=== PATIENT | female | born 1970 | race Caucasian/White ===

== ENCOUNTER 2017-08-25 08:01 | Inpatient (IN) | payer SELFPAY ==
[2017-08-25] MEDS ORDERED: ONDANSETRON 4 MG/2 ML VIAL IVPUSH ONE (08:58)
[2017-08-25] MEDS ORDERED: PANTOPRAZOLE SODIUM 40 MG in SODIUM CHLORIDE 100 ML IVPB ONE (09:09)
--- NOTE | 2017-08-25 09:09 | PDOC ---
History of Present Illness <Edna Whittaker - Last Filed: 08/25/17 14:11> - General History Source: Patient Exam Limitations: Language Barrier - History of Present Illness Initial Comments: 08/25/17 09:06 The patient is a 46F with a PMH of anemia who presents to the ER with complaints of bloody diarrhea. The patient states that she's had 20 bouts of bloody diarrhea since 1400 yesterday. She states there is BRB on the toilet paper as well as in the toilet bowl. She also admits to dysuria but denies hematuria or discharge. She admits to SOB and nausea when she feels crampy abdominal pain located on her L side. This pain is intermittent and occurs only when she feels like she needs to have a BM. She states that this happens when she feels like she has to have a bowel movement. She admits to chills but denies fever, vomiting, CP. She denies any abnormal food intake and recent use of abx. <Tay Coronel - Last Filed: 08/25/17 14:36> - General Chief Complaint: Pain Stated Complaint: ABDOMINAL PAIN Time Seen by Provider: 08/25/17 08:39 Past History <Edna Whittaker - Last Filed: 08/25/17 14:11> - Past Medical History COPD: No - Suicide/Smoking/Psychosocial Hx Smoking History: Never smoked <Tay Coronel - Last Filed: 08/25/17 14:36> - Past Medical History Allergies/Adverse Reactions: Allergies Allergy/AdvReac Type Severity Reaction Status Date / Time No Known Allergies Allergy Verified 08/25/17 08:05 Home Medications: Ambulatory Orders NK [No Known Home Medication] 08/25/17 Review of Systems - Review of Systems Able to Perform ROS?: Yes Comments:: 08/25/17 09:20 GENERAL/CONSTITUTIONAL: No fever or chills. No weakness. HEAD, EYES, EARS, NOSE AND THROAT: No change in vision. No ear pain or discharge. No sore throat. CARDIOVASCULAR: No chest pain, palpitations, or lightheadedness. RESPIRATORY: Positive for shortness of breath. No cough, wheezing, or hemoptysis. GASTROINTESTINAL: Positive for nausea and abdominal pain with bloody diarrhea. No vomiting. GENITOURINARY: Positive for dysuria and urgency. No frequency, hematuria, or change in urination. MUSCULOSKELETAL: No joint or muscle swelling or pain. No neck or back pain. SKIN: No rash or lesions. NEUROLOGIC: No headache, numbness, tingling, weakness, loss of consciousness, or change in strength/sensation. ENDOCRINE: No increased thirst. No abnormal weight change. HEMATOLOGIC/LYMPHATIC: No anemia, easy bleeding, or history of blood clots. ALLERGIC/IMMUNOLOGIC: No hives or skin allergy. Is the patient limited Turkmen proficient: No <Tay Coronel - Last Filed: 08/25/17 14:36> *Physical Exam - Vital Signs Last Vital Signs Temp Pulse Resp BP Pulse Ox 98.4 F 76 18 135/78 99 08/25/17 08:02 08/25/17 08:02 08/25/17 08:02 08/25/17 08:02 08/25/17 08:02 <Edna Whittaker - Last Filed: 08/25/17 14:11> - Vital Signs Last Vital Signs Temp Pulse Resp BP Pulse Ox 98.4 F 76 18 135/78 99 08/25/17 08:02 08/25/17 08:02 08/25/17 08:02 08/25/17 08:02 08/25/17 08:02 - Physical Exam Comments: 08/25/17 09:22 GENERAL: Well developed, well nourished. Awake and alert. No acute distress. HEENT: Normocephalic, atraumatic. Hearing grossly normal. Moist mucous membranes. PERRLA, EOMI. No conjunctival pallor. Sclera are non-icteric. NECK: Supple. Full ROM. CARDIOVASCULAR: Regular rate and rhythm. No murmurs, rubs, or gallops. PULMONARY: No evidence of respiratory distress. Lungs clear to auscultation bilaterally. No wheezing, rales or rhonchi. ABDOMINAL: Soft. Tender to deep palpation over LLQ. Non-distended. No rebound or guarding. RECTAL: No gross blood noted, normal rectal tone, no hemorrhoids noted. PELVIC: Deferred by patient. GENITOURINARY: No CVA tenderness bilaterally. MUSCULOSKELETAL: Normal range of motion at all joints. No bony deformities or tenderness. EXTREMITIES: No cyanosis. No clubbing. No edema. No calf tenderness or swelling. SKIN: Warm and dry. Normal capillary refill. No rashes. No jaundice. NEUROLOGICAL: Alert, awake, appropriate. Cranial nerves 2-12 intact. Gait is normal without ataxia. PSYCHIATRIC: Cooperative. Good eye contact. Appropriate mood and affect. <BernaTay - Last Filed: 08/25/17 14:36> Heart Score/ECG Review #1 General ECG Interpretation: Sinus Rhythm, Normal Rate, Normal Intervals, No acute ischemic changes Compared to previous ECG there are: Previous ECG unavail 08/25/17 10:08 NSR @ 70 LA 134 QRS 78 QTc 429 No FABRIZIO or STD noted. Diffuse flattening of T-waves appreciated Slight T wave inversion in III which is likely normal <MoejackAlejandro baileyTay - Last Filed: 08/25/17 14:36> ED Treatment Course - LABORATORY CBC & Chemistry Diagram: 08/25/17 12:10 08/25/17 09:20 - ADDITIONAL ORDERS Additional order review: Laboratory Results 08/25/17 08/25/17 08/25/17 09:48 09:26 09:20 PT with INR 12.20 INR 1.08 Sodium Potassium Chloride Carbon Dioxide Anion Gap BUN Creatinine Creat Clearance w eGFR Random Glucose Calcium Total Bilirubin AST ALT Alkaline Phosphatase Total Protein Albumin Serum , Qual Negative Urine Color Urine Appearance Urine pH Ur Specific [place] Urine Protein Urine Glucose (UA) Urine Ketones Urine Blood Urine Nitrite Urine Bilirubin Urine Urobilinogen Ur Leukocyte Esterase Urine WBC (Auto) Urine RBC (Auto) Ur Epithelial Cells Urine Mucus Stool Occult Blood Negative Blood Type Antibody Screen 08/25/17 08/25/17 08/25/17 09:20 09:20 09:00 PT with INR INR Sodium 139 Potassium 4.1 Chloride 104 Carbon Dioxide 28 Anion Gap 7 L BUN 11 Creatinine 0.7 Creat Clearance w eGFR > 60 Random Glucose 103 Calcium 8.9 Total Bilirubin 0.7 AST 15 ALT 23 Alkaline Phosphatase 65 Total Protein 8.1 Albumin 4.1 Serum , Qual Urine Color Ltyellow Urine Appearance Slcloudy Urine pH 6.0 Ur Specific [place] 1.018 Urine Protein 1+ H Urine Glucose (UA) Negative Urine Ketones Negative Urine Blood 2+ H Urine Nitrite Negative Urine Bilirubin Negative Urine Urobilinogen Negative Ur Leukocyte Esterase Negative Urine WBC (Auto) 4 Urine RBC (Auto) 10 Ur Epithelial Cells Moderate Urine Mucus Rare Stool Occult Blood Blood Type B POSITIVE Antibody Screen Negative 08/25/17 08/25/17 12:10 09:20 RBC 3.72 4.08 MCV 82.3 82.8 MCHC 32.3 32.7 RDW 15.6 15.9 H MPV 7.1 L 7.3 L Neutrophils % 67.5 70.8 Lymphocytes % 24.3 23.0 Monocytes % 7.5 5.4 Eosinophils % 0.2 D 0.1 Basophils % 0.5 0.7 - Medications Given in the ED: ED Medications Discontinued Medications Generic Name Dose Route Start Last Admin Trade Name Shyam PRN Reason Stop Dose Admin Ciprofloxacin 500 mg 08/25/17 11:54 08/25/17 12:17 Cipro (Restricted To Id) PO 08/25/17 11:55 500 mg ONCE ONE Administration Pantoprazole Sodium 40 mg/ 100 mls @ 200 mls/hr 08/25/17 09:09 08/25/17 09:54 Sodium Chloride IVPB 08/25/17 09:38 200 mls/hr ONCE ONE Administration Metronidazole 500 mg 08/25/17 11:54 08/25/17 12:17 Flagyl - PO 08/25/17 11:55 500 mg ONCE ONE Administration Ondansetron HCl 4 mg 08/25/17 08:58 08/25/17 09:54 Zofran Injection IVPUSH 08/25/17 08:59 4 mg ONCE ONE Administration Sodium Chloride 1,000 ml 08/25/17 11:17 08/25/17 11:32 Normal Saline - IV 08/25/17 11:18 1,000 ml ONCE ONE Administration <Edna Whittaker - Last Filed: 08/25/17 14:11> - LABORATORY CBC & Chemistry Diagram: 08/25/17 14:15 08/25/17 09:20 <Tay Coronel - Last Filed: 08/25/17 14:36> Medical Decision Making - Medical Decision Making 08/25/17 09:22 The patient is a 46F with a PMH of anemia who presents with complaints of BRBPR with diarrhea. She also complaints of dysuria. I am concerned for diverticular bleed, UTI, colon CA, and thrombosed hemorrhoids. Rectal exam did not demonstrate gross blood and indicated an empty vault. Pending labs/imaging. EKG ordered to r/o mesenteric ischemia. 08/25/17 10:09 EKG not indicative of a-fib so mesenteric ischemia is r/o. Hgb stable. Pending stool occult. 08/25/17 10:46 Stool occult negative. Pending CT. 08/25/17 11:[address] read. Will give 1 L fluid bolus. 08/25/17 11:47 CT indicating L sided colitis. CT read: Findings suspicious for left-sided colitis. Clinical correlation and follow-up recommended. Please see above discussion. Will give abx. 08/25/17 12:27 Dr. Lopez Parekh paged for consultation. 08/25/17 14:[address] Kemp for admission under Dr. Sigala. Pending call back from Dr. Parekh. <Tay Coronel - Last Filed: 08/25/17 14:36> *DC/Admit/Observation/Transfer - Discharge Dispostion Decision to Admit order: Yes <Edna Whittaker - Last Filed: 08/25/17 14:11> <Tay Coronel - Last Filed: 08/25/17 14:36> Diagnosis at time of Disposition: Colitis, GI bleed
--- NOTE | 2017-08-25 09:29 | PDOC ---
Attending Attestation - HPI HPI: 08/25/17 09:49 Pt is a 46 yo F with a PMHx of Anemia (on iron supplements) who presents to the ED with abdominal pain and bloody diarrhea for the past day. Patient reports crampy, LLQ abdominal pain, radiating to L flank associated with bloody diarrhea. Patient reports 10 episodes of loose stool with bright red blood in the toilet. Patient endorses associated dizziness and reports to the ED for further evaluation. Patient denies hx of GI bleed, recent NSAID use or recent travel. Patient denies chest pain, palpitations, diaphoresis, headache or dizziness. Patient denies fever, chills, nausea, vomit, constipation. PCP: Dr. Deepika Andrade - Medical Decision Making 08/25/17 09:42 Documentation prepared by Gabriela Llanos, acting as medical record administrator for Edna Whittaker MD <Gabriela Llanos - Last Filed: 08/25/17 09:58> - Resident Resident Name: Tay Coronel - ED Attending Attestation I have performed the following: I have examined & evaluated the patient, The case was reviewed & discussed with the resident, I agree w/resident's findings & plan, Exceptions are as noted - Physicial Exam PE: 08/25/17 12:27 awake alert lungs clear bilaterally heart rrr no mrg. abd soft mild llq ttp, left mid quad ttp. rectal no gross blood, no stool in the vault. ext wwp. no edema no calf tenderness. - Medical Decision Making 08/25/17 12:29 46 yo F with one day of loose stool mixed with blood. llq abd pain. differential colitis, diverticulitis, viral ge. plan ct a/p labs . on rectal no grooss blood cbc stabel, ct noted for colitis, will start cipro and flagyl. no bloody bm while in ed for 4 hrs. will rpt cbc, if stable, will dc home with outpt gi followup. <Edna Whittaker - Last Filed: 08/25/17 12:32> Heart Score/ECG Review #1 General ECG Interpretation: Sinus Rhythm, Normal Rate (70), Normal Intervals, No acute ischemic changes - ECG Intrepretation Rhythm: Regular Rhythm - Villalba Villalba: Normal - ECG Impressions Normal ECG: Yes <Edna Whittaker - Last Filed: 08/25/17 12:32>
[2017-08-25 09:32] LABS: BASO % 0.7 % (0-2.0); EOS % 0.1 % (0-4.5); HEMATOCRIT 33.8 % (32.4-45.2); MCHC 32.7 g/dl (32.0-36.0); MEAN CELL VOLUME 82.8 fl (80-96); MEAN PLT VOLUME 7.3 fl (7.5-11.1); MONO % 5.4 % (3.8-10.2); NEUT % 70.8 % (42.8-82.8); PLATELET COUNT 386 K/MM3 (134-434); RBC 4.08 M/mm3 (3.60-5.2); RDW 15.9 % (11.6-15.6); URINE APPEARANCE SLCLOUDY; URINE BILIRUBIN NEGATIVE (<2.0 mg/dL); URINE BLOOD 2+ (NEGATIVE); URINE COLOR LTYELLOW; URINE GLUCOSE (UA) NEGATIVE (NEGATIVE); URINE KETONE NEGATIVE (NEGATIVE); URINE LEUK ESTERASE NEGATIVE (NEGATIVE); URINE NITRITE NEGATIVE (NEGATIVE); URINE UROBILINOGEN NEGATIVE mg/dL (0.2-1.0); WHITE BLOOD COUNT 7.8 K/mm3 (4.0-10.0)
[2017-08-25 09:44] LABS: INR 1.08 (0.82-1.09); PROTHROMBIN TIME (PATIENT) 12.2 SEC (9.7-13.0)
[2017-08-25] MEDS ORDERED: ONDANSETRON 4 MG/2 ML VIAL ONE (09:47)
[2017-08-25] MEDS ORDERED: PANTOPRAZOLE SODIUM 40 MG/100 ML BAG IVPB ONE (09:47)
[2017-08-25 09:54] LABS: ALBUMIN 4.1 g/dl (3.4-5.0); ALK PHOS 65 U/L (45-117); ANION GAP 7 (8-16); BILIRUBIN,TOTAL 0.7 mg/dL (0.2-1.0); BLOOD UREA NITROGEN 11 mg/dL (7-18); CALCIUM 8.9 mg/dL (8.5-10.1); CHLORIDE 104 mmol/L (98-107); CO2 28 mmol/L (21-32); CREATININE 0.7 mg/dL (0.55-1.02); GLUCOSE,RANDOM 103 mg/dL (74-106); POTASSIUM 4.1 mmol/L (3.5-5.1); SGOT/AST 15 U/L (15-37); SGPT/ALT 23 U/L (12-78); SODIUM 139 mmol/L (136-145); TOT PROT 8.1 g/dl (6.4-8.2); URINE PROTEIN 1+ (NEGATIVE)
[2017-08-25 10:51] LABS: EPI CELLS MODERATE /HPF (FEW); URINE MUCUS RARE
[2017-08-25] MEDS ORDERED: SODIUM CHLORIDE 0.9% 1000 ML INFUS.BAG IV ONE (11:17)
[2017-08-25] MEDS ORDERED: metroNIDAZOLE 250 MG TABLET PO ONE (11:54)
[2017-08-25] MEDS ORDERED: CIPROFLOXACIN 500 MG TABLET (RESTRICTED TO ID) PO ONE (11:54)
[2017-08-25] MEDS ORDERED: metroNIDAZOLE 250 MG TABLET ONE (11:59)
[2017-08-25 12:31] LABS: BASO % 0.5 % (0-2.0); EOS % 0.2 % (0-4.5); HEMATOCRIT 30.6 % (32.4-45.2); HEMOGLOBIN 9.9 GM/dL (10.7-15.3); LYMPH % 24.3 % (8-40); MCH 26.6 pg (25.7-33.7); MCHC 32.3 g/dl (32.0-36.0); MEAN CELL VOLUME 82.3 fl (80-96); MEAN PLT VOLUME 7.1 fl (7.5-11.1); MONO % 7.5 % (3.8-10.2); NEUT % 67.5 % (42.8-82.8); PLATELET COUNT 334 K/MM3 (134-434); RBC 3.72 M/mm3 (3.60-5.2); RDW 15.6 % (11.6-15.6); WHITE BLOOD COUNT 7.1 K/mm3 (4.0-10.0)
[2017-08-25 14:31] LABS: HEMATOCRIT 31.1 % (32.4-45.2); MCH 26.6 pg (25.7-33.7); MEAN CELL VOLUME 82.9 fl (80-96); MEAN PLT VOLUME 7.1 fl (7.5-11.1); PLATELET COUNT 329 K/MM3 (134-434); RBC 3.75 M/mm3 (3.60-5.2); RDW 16.1 % (11.6-15.6); WHITE BLOOD COUNT 6.4 K/mm3 (4.0-10.0)
[2017-08-25 14:53] LABS: ALBUMIN 3.6 g/dl (3.4-5.0); ANION GAP 7 (8-16); BILIRUBIN,TOTAL 0.5 mg/dL (0.2-1.0); BLOOD UREA NITROGEN 9 mg/dL (7-18); CALCIUM 8.6 mg/dL (8.5-10.1); CHLORIDE 104 mmol/L (98-107); CO2 29 mmol/L (21-32); CREATININE 0.7 mg/dL (0.55-1.02); GLUCOSE,RANDOM 90 mg/dL (74-106); POTASSIUM 3.8 mmol/L (3.5-5.1); SGOT/AST 12 U/L (15-37); SGPT/ALT 21 U/L (12-78); SODIUM 140 mmol/L (136-145); TOT PROT 7.3 g/dl (6.4-8.2)
[2017-08-25 14:54] LABS: ALK PHOS 58 U/L (45-117)
--- NOTE | 2017-08-25 14:58 | PN ---
Teaching Attending Note Name of Resident: Tiff Kemp ATTENDING PHYSICIAN STATEMENT I saw and evaluated the patient. I reviewed the resident's note and discussed the case with the resident. I agree with the resident's findings and plan as documented. SUBJECTIVE: CC: rectal bleed and abd pain . HPI : 46 y/o lady with h/o iron def anemia who presented with abd pain / diarrhea /BRBPR. she has been doing well until a week ago when she started having diarrhea . then yesterday diarrhea got worses, then she started having abd pain , and BRBPR with some of her BM she had. pain is constant , located in LLQ, LUQ, with no alleviating factors or agravating factors. she denies recent Abx use. she denies any fever or chills. No N/V. reports using NSAIDs, twice a day three times a week for general ains and aches lately. she denies colonoscopy or EGD in past. OBJECTIVE: NAD, Awake and cooperative HEENT: MMM, no facial droop. EOMI. round equal pupils . CV: RRR, no MRG Lungs: CTAB Abd: soft, ND, obese, TTP in LLQ and suprapubic area. No rebound tenderness or guarding. Ext: no edema or erythema. L anterior leg tattoo Neuro: EOMI, no facial droop. ongue and uvula at mid line. strength 5/5 in upper and lwoer ext. Knee jerk 1+ b/l . Rectal exam : by resident EKG: sinus rhythm,. QTC 434 CTscan : L colitis , and enlarged uterus ASSESSMENT AND PLAN: 46 y/o lady with h/o anemia , who presented with rectal bleed and abd pain and was found to have colitis on CT scan . 1- Abd pain, diarrhea and rectal bleed: the diarrhea x 1 week then abd pain and BRBPR raise suspicion for ischemic colitis due to volume depletion . infectious colitis is also in differential diagnosis . NSAIDs use also partcipating. IBD is unlikely. - start levaquin and flagyl. Qtc 434. - IVF @ 125 cc/hr to keep adequate volume - echo - clear liquid diet - bowel prep tomorrow for colonoscopy on Sunday - send stool cx and c diff - follow Hb closely as there is initial drop of 1 g - Gi consult 2- H/O iron def anemia: likely due to heavy menstrual bleeding. Ct scan showed enlarged uterus with fibroids. - f/u with [employer] as out pt - check iron studies - she stopped her iron supp 2 weeks ago. 3- DVT px : SCds
--- NOTE | 2017-08-25 15:38 | HP ---
CHIEF COMPLAINT: Bloody Diarrhea PCP: Dr. Raymond Vila HISTORY OF PRESENT ILLNESS: Patient is a 46 year old female with a PMHx of Iron def. anemia who presents today complaining of a one week history of diarrhea that started after eating gretchen pasta. Patient reports she started having at least 1-2 watery diarrhea episodes since last Sunday (08/14/17) and then yesterday afternoon she started having increasing diarrhea (reports up to 40 times yesterday) with episodes of bloody bright red diarrhea associated with abdominal pain. Patient reports sharp, constant suprabupic tenderness radiating to the LLQ with a severity of 10 /10. Patient states she did not eat since yesterday and is unsure if it exacerbates the symptoms. She denies any changes to her diet. Denies eating spicy food. Patient reports never having an EGD or colonscopy done. Patient adela, does report taking 2 pills of Advil at least four times a week for headaches and back pain for the past 2-3 months. Otherwise, patient denies fever, chills, nausea, vomiting, chest pain, palpitations, shortness of breath, dysuria, hematuria, hematochezia, melena. Patient denies any recent travel ER course was notable for: (1) CT abdo revealing colitis (2) Flagyl and Cipro given (3) Recent Travel: Denies PAST MEDICAL HISTORY: Iron Deficiency Anemia PAST SURGICAL HISTORY: Hysterectomy (21 years ago) Social History: Smoking: Denies Alcohol: Denies Drugs: Denies Family History: Denies any family history of colon cancer Mother- Pancreatic cancer Father- Liver cancer Allergies: No Known Allergies Allergy (Verified 08/25/17 08:05) HOME MEDICATIONS: Home Medications Medication Instructions Recorded NK [No Known Home Medication] 08/25/17 REVIEW OF SYSTEMS CONSTITUTIONAL: Absent: fever, chills, diaphoresis, generalized weakness, malaise, loss of appetite, weight change HEENT: Absent: rhinorrhea, nasal congestion, throat pain, throat swelling, difficulty swallowing, mouth swelling, ear pain, eye pain, visual changes CARDIOVASCULAR: Absent: chest pain, syncope, palpitations, irregular heart rate, lightheadedness , peripheral edema RESPIRATORY: Absent: cough, shortness of breath, dyspnea with exertion, orthopnea, wheezing, stridor, hemoptysis GASTROINTESTINAL: Bloody diarrhea, abdominal pain Absent: abdominal distension, nausea, vomiting, constipation, melena, hematochezia GENITOURINARY: Absent: dysuria, frequency, urgency, hesitancy, hematuria, flank pain, genital pain MUSCULOSKELETAL: Absent: myalgia, arthralgia, joint swelling, back pain, neck pain SKIN: Absent: rash, itching, pallor HEMATOLOGIC/IMMUNOLOGIC: Absent: easy bleeding, easy bruising, lymphadenopathy, frequent infections ENDOCRINE: Absent: unexplained weight gain, unexplained weight loss, heat intolerance, cold intolerance NEUROLOGIC: Absent: headache, focal weakness or paresthesias, dizziness, unsteady gait, seizure, mental status changes, bladder or bowel incontinence PSYCHIATRIC: Absent: anxiety, depression, suicidal or homicidal ideation, hallucinations. PHYSICAL EXAMINATION Vital Signs - 24 hr 08/25/17 08/25/17 08:02 15:11 Temperature 98.4 F 97.8 F Pulse Rate 76 Pulse Rate [ 75 Left Apical] Respiratory 18 16 Rate Blood Pressure 135/78 Blood Pressure 131/84 [Left Arm] O2 Sat by Pulse 99 99 Oximetry (%) GENERAL: Awake, alert, and fully oriented, in no acute distress. HEAD: Normal with no signs of trauma. EYES: Pupils equal, round and reactive to light, extraocular movements intact, sclera anicteric, conjunctiva clear. No lid lag. EARS, NOSE, THROAT: Oropharynx clear without exudates. Moist mucous membranes. NECK: Normal range of motion, supple without lymphadenopathy, JVD, or masses. LUNGS: Breath sounds equal, clear to auscultation bilaterally. No wheezes, and no crackles. No accessory muscle use. HEART: Regular rate and rhythm, normal S1 and S2 without murmur, rub or gallop. ABDOMEN: Soft, obese, tenderness upon palpation of suprapubic region and left lower quadrant, hyperactive bowel sounds, no guarding, no rebound, no masses. No hepatomegaly or splenomegaly. RECTAL: MUSCULOSKELETAL: Normal range of motion at all joints. No bony deformities or tenderness. No CVA tenderness. UPPER EXTREMITIES: No peripheral edema. LOWER EXTREMITIES: No calf tenderness. No peripheral edema. NEUROLOGICAL: Cranial nerves II-XII intact. Normal speech. Normal gait. PSYCHIATRIC: Cooperative. Good eye contact. Appropriate mood and affect. SKIN: Warm, dry, normal turgor, no rashes or lesions noted, normal capillary refill. Laboratory Results - last 24 hr CBC, BMP 08/25/17 14:15 08/25/17 14:15 08/25/17 08/25/17 08/25/17 09:20 09:20 09:48 INR 1.08 AST ALT Alkaline Phosphatase Urine Blood 2+ H Ur Leukocyte Esterase Negative Urine WBC (Auto) 4 Stool Occult Blood Negative 08/25/17 14:15 INR AST 12 L ALT 21 Alkaline Phosphatase 58 Urine Blood Ur Leukocyte Esterase Urine WBC (Auto) Stool Occult Blood IMAGES: CT Abdomen (): The lung bases are clear. The liver, spleen, pancreas, adrenal glands and kidneys demonstrate no significant abnormalities. There is no evidence of intra-abdominal or retroperitoneal lymphadenopathy or fluid collections. There is no evidence of pneumoperitoneum, bowel obstruction or intra-abdominal abscess. There is increased stool within the right colon. The left colon is somewhat collapsed and amorphous in appearance. There is a mild degree of inflammatory stranding about the left colon. This appearance is suspicious for colitis. Clinical correlation is advised. Colonoscopic follow-up may also be warranted. Examination of the pelvis demonstrates no evidence of pelvic masses, fluid collections or lymphadenopathy. The uterus is somewhat bulky in appearance and leiomyomata are suspected. There is no evidence of acute bony pathology. IMPRESSION: Findings suspicious for left-sided colitis. ASSESSMENT/PLAN: Patient is a 46 year old female who presented for bloody diarrhea and was found to have left sided colitis. Patient admitted for further monitoring and management. Abdominal Pain with Bloody Diarrhea -Possibly secondary to ischemic vs. infectious colitis. Rule out GI bleed -CT shows Left sided colitis -History of NSAID use -IV abx with Flagyl 500MG IVPB Q8H and Ceftriaxone 1gm IVPB daily -Clear liquid diet -LR @125mls/hr -Stool cultures and c.diff culture sent -ECHO to rule out any emboli -Repeat hgb this evening -Bowel prep tomorrow with a colonscopy Sunday (08/27/17) -GI consult appreciated History of Iron Deficiency Anemia -Likely secondary to enlarged uterus with possible fibroids -Will need to follow up with OBGYN as outpatient -Stopped taking ferrous sulfate due to constipation two weeks ago -Iron studies pending F/E/N -IV LR @125mls/hr -Electrolytes wnl -Clear liquids Prophylaxis -GI bleed, no AC -Protonix 40mg IVP daily for GI Disposition -Full code -Bowel prep tomorrow for colonoscopy sunday (08/27/17) Visit type - Emergency Visit Emergency Visit: Yes ED Registration Date: 08/25/17 Care time: The patient presented to the Emergency Department on the above date and was hospitalized for further evaluation of their emergent condition. - New Patient This patient is new to me today: Yes Date on this admission: 08/25/17 - Critical Care Critical Care patient: No Hospitalist Screening - Colonoscopy Questionnaire Colonoscopy Questionnaire: Colonoscopy Questionnaire - Patient: 50 - 75 years old and never had a screening colonoscopy: No History of colon or rectal polyps, or CA: No History of IBD, Crohn's disease or UC: No History of abdominal radiation therapy as a child: No - Relative: 1 with colon or rectal CA, or polyps at age 60 or younger: No Colon or rectal CA diagnosed at age 45 or younger: No Multiple relatives with colon or rectal CA: No - Outcome: Screening Result: Negative Screen
--- NOTE | 2017-08-25 16:38 | PN ---
Progress Note (short form) - Note Progress Note: GI CONSULTATION: PLEASE SEE THE COMPLETE DICTATION D/W MEDICAL TEAM ACUTE HEMATOCHEZIA/DIARRHEA HEMODYNAMICALLY INSIGNIFICANT HGB 11 TO 10 AFTER [address] C/W DISTAL COLITIS OF ? ETIOLOGY DDX DISCUSSED WITH TEAM RECC: CLEARS PO F/U h/h IN AM START GOLYTLY 1 GALLON AT 2PM ON 08/26 DULCOLAX 4 TABS PO AT 6PM ON 08/27 COLONOSOCPY ON 08/27 STOOL STUDIES UNCLEAR ROLE OF ABX OR PPI IN THIS SETTING BUT DOUBT ANY HARM THANKS, MD BALWINDER
[2017-08-25 17:03] VITALS: BMI 40.5
--- NOTE | 2017-08-25 17:06 | CONS ---
DATE OF CONSULTATION: DATE OF DICTATION: 08/25/2017 HISTORY: I was asked by Dr. Zafar to evaluate the patient for hematochezia. The patient is a 46-year-old woman from the [place] who tells me that she has no past medical history. The patient has not been on any medication. She has no history of diabetes or heart disease. Apparently, the story I got via translation from the relative at the bedside is that yesterday after lunch she had the onset of bloody diarrhea multiple episodes. She did not have any fevers, chills, or sweats. She did not have any nausea or vomiting, but she did have crampy epigastric and then left lower quadrant pain. She was not having any rectal discomfort, pus, fecal incontinence, or discharge. The patient reports that she has never had bowel problems in the past. She has no known GI history. She has never had a colonoscopy in the past. The patient has been taking for some body aches and pains and headaches. She takes a lot of Advil. Sometimes she takes between 2-4 Advil a day on a chronic basis. Otherwise, she does not take any medications. The patient does not smoke, drink, or use drugs. 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 She is . She was born in the [place]. The patient's only surgery was a bilateral tubal ligation. As noted, she has no prior medical history. Family history is notable in that her mother has pancreatic cancer. Her father had liver disease. When the patient came into the hospital it is noted that she was hemodynamically stable, and in the emergency room she was evaluated and known to have some blood on digital examination. The patient had a CAT scan raising concern of colitis, and she was admitted for treatment and diagnostic testing. Currently, the patient's last bowel movement was about an hour ago, and it was bloody. Otherwise, she is feeling okay and is not having any significant tenesmus or incomplete evacuation. MEDICATIONS: The patient's current medication in the hospital includes ceftriaxone, Flagyl, IV fluid, and Protonix. She had gotten some Zofran. PHYSICAL EXAMINATION: General: She is very well developed, well nourished in no acute distress. Vital Signs: She is afebrile. Her vital signs are stable. Her heart rate is 75, her blood pressure is 131/84. Her temperature is 97.8, and she weighs 230 pounds. Neck: Thick. Heart: Regular. Abdomen: Obese but soft. Bowel sounds are heard. There are no masses, rebound, or guarding. There is minimal tenderness to deep palpation in the left lower quadrant. Rectal: Not repeated as it was recently just done in the emergency room as noted. LABORATORY DATA: Her lab data is notable in that her hemoglobin on admission was 11 and after IV fluid for approximately 5 hours it dropped to 10. Her MCV is 83 with 229,000 platelets and a 6.4 white count. Her coagulation studies are currently normal, and her chemistries are all within normal limits as well. As noted, the only testing she did have in addition was a CAT scan that reveals evidence of a left distal colon colitis. IMPRESSION: The patient is a 46-year-old woman without medical history from [place] who comes in with diarrhea and rectal bleeding with left lower quadrant crampy pain and findings to support a distal colitis of unclear etiology. At this time, I have strongly recommended the patient be admitted, placed on a clear liquid diet, and be resuscitated and observed. Tomorrow she will begin a GoLYTELY lavage with Dulcolax tablets, and she will undergo a diagnostic colonoscopy on August 27. Based on those findings, further recommendations will follow. For now, I would recommend continuing to send off stool studies to rule out infectious culprits. In a differential diagnosis would be ischemic colitis but less likely because there is no white count and no significant pain, and it is unclear that her blood pressure has actually dropped. Possibly would be an infectious colitis, but again, she does not appear infected, normal white count. She certainly is not toxic. I do not think there is any significant harm to the antibiotics, but I doubt that it is going to play a role in her convalescence. Regardless, for now I would check stool studies, perform colonoscopy and biopsy as needed. She has not been on recent antibiotics, so I think a Clostridium difficile colitis is unknown. We will continue to be available to aid in the management of this patient. GUILLE BRITT M.D. HANANE/[id number]
[2017-08-25] MEDS: LACTATED RINGERS SOLUTION 1,000 ML IV SCH (18:13)
[2017-08-25] MEDS ORDERED: DEXTROSE 5%-WATER - 50 ML IVPB ONE (20:53)
[2017-08-25] MEDS ORDERED: cefTRIAXone SODIUM 1 GM VIAL ONE (20:53)
[2017-08-25] MEDS: CEFTRIAXONE 1 GM in DEXTROSE 5%-WATER - 50 ML IVPB SCH (21:05)
[2017-08-25] MEDS ORDERED: CEFTRIAXONE 1 GM in DEXTROSE 5%-WATER - 50 ML IVPB ONE (22:00)
[2017-08-26] MEDS: ACETAMINOPHEN 325 MG TABLET (FP) PO PRN ×2 (01:58→10:05)
[2017-08-26 08:46] LABS: HEMATOCRIT 29.6 % (32.4-45.2); HEMOGLOBIN 9.8 GM/dL (10.7-15.3); MCH 27.4 pg (25.7-33.7); MCHC 33.2 g/dl (32.0-36.0); MEAN CELL VOLUME 82.4 fl (80-96); MEAN PLT VOLUME 7.3 fl (7.5-11.1); PLATELET COUNT 315 K/MM3 (134-434); RDW 15.7 % (11.6-15.6); WHITE BLOOD COUNT 4.9 K/mm3 (4.0-10.0)
[2017-08-26 09:12] LABS: CHLORIDE 104 mmol/L (98-107); POTASSIUM 3.7 mmol/L (3.5-5.1); SODIUM 140 mmol/L (136-145)
[2017-08-26 09:17] LABS: ANION GAP 7 (8-16); BLOOD UREA NITROGEN 9 mg/dL (7-18); CALCIUM 8.3 mg/dL (8.5-10.1); CO2 29 mmol/L (21-32); CREATININE 0.7 mg/dL (0.55-1.02); GLUCOSE,RANDOM 98 mg/dL (74-106); MAGNESIUM 2.4 mg/dL (1.8-2.4); PHOSPHOROUS 3.5 mg/dL (2.5-4.9)
[2017-08-26 09:18] LABS: INR 1.13 (0.82-1.09); PROTHROMBIN TIME (PATIENT) 12.8 SEC (9.7-13.0)
[2017-08-26] MEDS ORDERED: PT OWN MED DRAWER 7, Y5N ONE (09:33)
[2017-08-26] MEDS ORDERED: CEFTRIAXONE 1 GM in DEXTROSE 5%-WATER - 50 ML IVPB SCH (10:00)
[2017-08-26] MEDS ORDERED: PANTOPRAZOLE SODIUM 40 MG VIAL IVPUSH SCH (10:00)
[2017-08-26] MEDS ORDERED: PEG3350/SOD SULF,BICARB,CL/KCL 4,000 ML SOLN.RECON PO ONE (14:00)
--- NOTE | 2017-08-26 14:26 | PN ---
GI Progress Note Subjective: GI F/U NOTE NO FURTHER HEMATOCHEZIA NO DIARRHEA NO N/V/F/C/S LESS ABD CRAMPING IN THE LLQ TAKING CLEARS PO NOW TO START BOWEL PREP - Objective Vital Signs: Vital Signs Temperature 98.6 F 08/26/17 09:00 Pulse Rate 73 08/26/17 09:00 Respiratory Rate 18 08/26/17 09:00 Blood Pressure 150/65 08/26/17 09:00 O2 Sat by Pulse Oximetry (%) 98 08/25/17 21:00 Constitutional: Well Nourished, No Distress, Calm Eyes: Yes: WNL (+BS/ SOFT/ NT/ OBESE) Labs: CBC, BMP 08/26/17 06:30 08/26/17 06:30 INR, PTT INR 1.13 (0.82-1.09) 08/26/17 06:30 Assessment/Plan 46F WITH ACUTE HEMATOCHEZIA DROP IN HGB FROM 11 TO 9.8/ REL. STABLE HEMODYNE STABLE CT C/W COLITIS: ? ISHCEMIC VS INFECTIOUS FOR DX COLONOSCOPY ON 08/27 PT CONSENT DESPITE THE RISKS FOR BOWEL PREP TODAY: GOLYLTY + DULCOLAX TABS NPO AT MN EXCEPT MEDS F/U STOOL STUDIES MD BALWINDER
[2017-08-26] MEDS: LACTATED RINGERS SOLUTION 1,000 ML IV SCH (17:39)
[2017-08-26] MEDS ORDERED: BISACODYL 5 MG TABLET.DR (FP) PO ONE (18:00)
--- NOTE | 2017-08-26 18:10 | PN ---
Progress Note (short form) - Note Progress Note: Subjective: No fever or chills . has no Abd pain. Objective: Vital Signs: Last Vital Signs Temp Pulse Resp BP Pulse Ox 98.2 F 75 18 125/65 98 08/26/17 14:33 08/26/17 14:33 08/26/17 14:33 08/26/17 14:33 08/25/17 21:00 Laboratory Results - last 24 hr 08/25/17 08/26/17 08/26/17 20:10 06:30 06:30 WBC 4.9 RBC 3.60 Hgb 9.8 L Hct 29.6 L MCV 82.4 MCH 27.4 MCHC 33.2 RDW 15.7 H Plt Count 315 MPV 7.3 L PT with INR 12.80 INR 1.13 Sodium Potassium Chloride Carbon Dioxide Anion Gap BUN Creatinine Random Glucose Calcium Phosphorus Magnesium Ferritin 4.308 L 08/26/17 06:30 WBC RBC Hgb Hct MCV MCH MCHC RDW Plt Count MPV PT with INR INR Sodium 140 Potassium 3.7 Chloride 104 Carbon Dioxide 29 Anion Gap 7 L BUN 9 Creatinine 0.7 Random Glucose 98 Calcium 8.3 L Phosphorus 3.5 Magnesium 2.4 Ferritin Physical Exam: NAD, Awake and cooperative. HEENT: MMM CV: RRR, no MRG Lungs: CTAB Abd: soft, ND, obese, NT today Ext: no edema or erythema. L anterior leg tattoo ASSESSMENT AND PLAN: 46 y/o lady with h/o anemia , who presented with rectal bleed and abd pain and was found to have colitis on CT scan . 1- L sided colitis : ischemic Vs infectious has h/o NSAIds use as well - Cont Abx - Cont IVF . avoid hypoperfusion - echo - stool cx pending - stable HB . follow - colo tomorrow. bowel prep today 2- H/O iron def anemia: likely due to heavy menstrual bleeding. Ct scan showed enlarged uterus with fibroids. - f/u with [facility] as out pt - ferritin 4 , indicating very depleted iron stores. rest pending. - give IV iron x 1 . will need to be evaluated for iron transfusion prpotocol as out pt - will dc on Po iron 3- DVT px : SCds Visit type - Emergency Visit Emergency Visit: Yes ED Registration Date: 08/25/17 Care time: The patient presented to the Emergency Department on the above date and was hospitalized for further evaluation of their emergent condition. - New Patient This patient is new to me today: No - Critical Care Critical Care patient: No
[2017-08-26] MEDS ORDERED: IRON SUCROSE INJECTION 200 MG in SODIUM CHLORIDE 90 ML IVPB ONE (18:30)
[2017-08-26] MEDS ORDERED: cefTRIAXone SODIUM 1 GM VIAL ONE (20:42)
[2017-08-26] MEDS ORDERED: DEXTROSE 5%-WATER - 50 ML IVPB ONE (20:45)
[2017-08-26] MEDS: CEFTRIAXONE 1 GM in DEXTROSE 5%-WATER - 50 ML IVPB SCH (21:34)
--- NOTE | 2017-08-26 22:17 | EKG ---
Test Reason : Blood Pressure : / mmHG Vent. Rate : 070 BPM Atrial Rate : 070 BPM P-R Int : 134 ms QRS Dur : 078 ms QT Int : 398 ms P-R-T Axes : 037 -01 001 degrees QTc Int : 429 ms NORMAL SINUS RHYTHM NONSPECIFIC T WAVE ABNORMALITY ABNORMAL ECG NO PREVIOUS ECGS AVAILABLE Confirmed by MIGUELINA PARHAM MD ([id number]) on 08/26/2017 10:16:55 PM Referred By: Confirmed By:MIGUELINA PARHAM MD
[2017-08-27] MEDS ORDERED: INSULIN (NOVOLOG) ASPART 100 UNITS/ML 10ML VIAL ONE (06:09)
[2017-08-27] MEDS ORDERED: INSULIN (LEVEMIR) 100 UNITS/ML UNITS SQ ONE (06:10)
[2017-08-27 06:12] LABS: SERUM IRON SATURATION 8 % (15-55); TOTAL IRON BINDING CAPACITY 358 ug/dL (250-450); UIBC 328 ug/dL (131-425)
[2017-08-27 08:22] LABS: HEMATOCRIT 30.8 % (32.4-45.2); HEMOGLOBIN 10.2 GM/dL (10.7-15.3); MCH 27.2 pg (25.7-33.7); MCHC 33.2 g/dl (32.0-36.0); MEAN CELL VOLUME 81.8 fl (80-96); MEAN PLT VOLUME 7.3 fl (7.5-11.1); PLATELET COUNT 338 K/MM3 (134-434); RBC 3.77 M/mm3 (3.60-5.2); RDW 15.8 % (11.6-15.6); WHITE BLOOD COUNT 6.3 K/mm3 (4.0-10.0)
[2017-08-27] MEDS: LACTATED RINGERS SOLUTION 1,000 ML IV SCH ×2 (09:21→16:50)
--- NOTE | 2017-08-27 13:03 | PROC ---
Endoscopy Procedure Endoscopy procedure completed. Please see scanned procedure report. Moderate erythema and edema in the distal descending, sigmoid colon, mild erythema in the rectum. Normal appearing TI, ascending, transverse colon. A diminutive polyp was found in the cecum and removed. Await biopsies and stool test results Low residual diet for now Avoid NSAIDS
[2017-08-27 14:13] LABS: TRANSFERRIN 279 mg/dL (200-370)
--- NOTE | 2017-08-27 19:08 | PN ---
Physical Exam: SUBJECTIVE: Patient seen and examined oob ambulating around room. Feels well, no complaints. Eating rice and applesauce. OBJECTIVE: Vital Signs Period Temp Pulse Resp BP Sys/Mahoney Pulse Ox Last 24 Hr 97.9 F-99.4 F 71-87 18-20 105-153/50-88 98-100 GENERAL: The patient is awake, alert, and fully oriented, in no acute distress. LUNGS: Breath sounds equal, clear to auscultation bilaterally, no wheezes, no crackles, no accessory muscle use. HEART: Regular rate and rhythm, S1, S2 ABDOMEN: Soft, nontender, nondistended, normoactive bowel sounds, no guarding, no rebound EXTREMITIES: 2+ pulses, warm, well-perfused, no edema. NEUROLOGICAL: Cranial nerves II through XII grossly intact. Normal speech, steady gait Laboratory Results - last 24 hr 08/25/17 08/27/17 20:10 07:42 WBC 6.3 RBC 3.77 Hgb 10.2 L Hct 30.8 L MCV 81.8 MCH 27.2 MCHC 33.2 RDW 15.8 H Plt Count 338 MPV 7.3 L Iron 30 TIBC 358 Iron Saturation 8 L Transferrin 279 Active Medications Generic Name Dose Route Start Last Admin Trade Name Freq PRN Reason Stop Dose Admin Acetaminophen 650 mg 08/25/17 22:10 08/26/17 10:05 Tylenol - PO 650 mg Q6H PRN Administration FEVER Lactated Ringer's 1,000 mls @ 125 mls/hr 08/25/17 16:15 08/27/17 16:50 Lactated Ringers Solution IV Not Given [facility] Metronidazole 500 mg in 100 mls @ 100 mls/hr 08/25/17 18:00 08/27/17 17:15 Flagyl 500mg Premixed Ivpb - IVPB 100 mls/hr Q8H-IV DINA Administration Ceftriaxone Sodium 1 gm/ 50 mls @ 100 mls/hr 08/25/17 22:00 08/26/17 21:34 Dextrose IVPB 100 mls/hr Q24H DINA Administration Protocol ASSESSMENT/PLAN 47 year-old female with a PMH significant for iron-deficiency anemia. Admitted for colitis and bloody diarrhea in the setting of significant NSAID use. Colitis --Colonoscopy today: moderate erythema and edema distal descending, sigmoid, rectum; one tiny polyp --low residual diet --avoid NSAIDS --continue ceftriaxone (day #3), metronidazole (day #3) --GI following Iron deficiency anemia --h/h stable --CT shows enlarged uterus with fibroids, will need outpatient VAMP [facility]TER followup FEN Fluids: PO intake adequate Electrolytes: replete as indicated Nutrition: low fiber diet DVT prophylaxis: SCDs, oob, ambulation; hold chemical prophylaxis due to bleeding issue Dispo: continues to require inpatient care. Full code. Visit type - Emergency Visit Emergency Visit: Yes ED Registration Date: 08/25/17 Care time: The patient presented to the Emergency Department on the above date and was hospitalized for further evaluation of their emergent condition. - New Patient This patient is new to me today: Yes Date on this admission: 08/27/17 - Critical Care Critical Care patient: No
[2017-08-27] MEDS ORDERED: cefTRIAXone SODIUM 1 GM VIAL ONE (21:33)
[2017-08-27] MEDS ORDERED: DEXTROSE 5%-WATER - 50 ML IVPB ONE (21:34)
[2017-08-27] MEDS: CEFTRIAXONE 1 GM in DEXTROSE 5%-WATER - 50 ML IVPB SCH (21:42)
--- NOTE | 2017-08-28 11:15 | DS ---
Physical Exam: SUBJECTIVE: Patient seen and examined OBJECTIVE: Vital Signs Period Temp Pulse Resp BP Sys/Mahoney Pulse Ox Last 24 Hr 97.9 F-99.4 F 68-87 18-20 105-153/50-88 98-100 PHYSICAL EXAM GENERAL: The patient is awake, alert, and fully oriented, in no acute distress. HEAD: Normal with no signs of trauma. EYES: PERRL, extraocular movements intact, sclera anicteric, conjunctiva clear. ENT: Ears normal, nares patent, oropharynx clear without exudates, moist mucous membranes. NECK: Trachea midline, full range of motion, supple. LUNGS: Breath sounds equal, clear to auscultation bilaterally, no wheezes, no crackles, no accessory muscle use. HEART: Regular rate and rhythm, S1, S2 without murmur, rub or gallop. ABDOMEN: Soft, nontender, nondistended, normoactive bowel sounds, no guarding, no rebound, no hepatosplenomegaly, no masses. EXTREMITIES: 2+ pulses, warm, well-perfused, no edema. NEUROLOGICAL: Cranial nerves II through XII grossly intact. Normal speech, gait not observed. PSYCH: Normal mood, normal affect. SKIN: Warm, dry, normal turgor, no rashes or lesions noted. LABS Laboratory Results - last 24 hr 08/25/17 20:10 Transferrin 279 HOSPITAL COURSE: Date of Admission:08/25/17 Date of Discharge: 08/28/17 Minutes to complete discharge: 35 Discharge Summary Reason For Visit: COLITIS GI HEMORRHAGE Current Active Problems Colitis (Acute) GI bleed (Acute) - Instructions Referrals: Raymond Vila [Primary Care Provider] - - Home Medications Comprehensive Discharge Medication List: Ambulatory Orders Advil - 1 tab PO Q6H PRN 08/25/17 This patient is new to me today: No Emergency Visit: Yes ED Registration Date: 08/25/17 Care time: The patient presented to the Emergency Department on the above date and was hospitalized for further evaluation of their emergent condition. Critical Care patient: No - Discharge Referral [facility]erred to [facility] Med P.C.: No
[2017-08-28 12:10] VITALS: BP 133/71; PULSE 77; TEMP 98.5
--- NOTE | 2017-08-28 17:15 | PATH ---
Surgical Pathology Report Patient Name: GERMAN TORRES [facility]. Rec. #: [id number] /Age/Gender: 1970 (Age: 47) / F Account: [id number] Location: [facility] MED/SURG Taken: 08/27/2017 Received: 08/27/2017 Reported: 08/28/2017 Physicians: Mark Stokes M.D. Specimen(s) Received A: BX TERMINAL ILEUM B: BX CECAL POLYP C: BX ASCENDING COLON D: BX TRANSVERSE COLON E: BX DESCENDING COLON F: BX SIGMOID G: BX RECTUM Clinical History Hematochezia Postoperative diagnosis: Polyp, colitis Final Diagnosis A. TERMINAL ILEUM, BIOPSY: ILEUM MUCOSA WITH NO DIAGNOSTIC ABNORMALITIES. B. CECUM POLYP, BIOPSY: TUBULAR ADENOMA. C. ASCENDING COLON, BIOPSY: COLONIC MUCOSA WITH REACTIVE LYMPHOID AGGREGATE. D. TRANSVERSE COLON, BIOPSY: COLONIC MUCOSA WITH NO DIAGNOSTIC ABNORMALITIES. E. DESCENDING COLON, BIOPSY: COLONIC MUCOSA WITH REACTIVE LYMPHOID AGGREGATE. F. SIGMOID, BIOPSY: COLONIC MUCOSA WITH REACTIVE LYMPHOID AGGREGATE. G. RECTAL, BIOPSY: COLONIC MUCOSA WITH REACTIVE LYMPHOID AGGREGATE. Electronically Signed Elsie Lambert M.D. Gross Description A. Received in formalin, labeled "biopsy terminal ileum" are 2 junior, irregular portions of soft tissue measuring 0.3 and 0.6 cm. in greatest dimension. The specimens are submitted in toto in one cassette. B. Received in formalin, labeled "biopsy cecal polyp" are 2 junior, irregular portions of soft tissue measuring 0.2 and 0.4 cm. in greatest dimension. The specimens are submitted in toto in one cassette. C. Received in formalin, labeled "biopsy ascending colon" are 2 junior, irregular portions of soft tissue measuring 0.1 and 0.4 cm. in greatest dimension. The specimens are submitted in toto in one cassette. D. Received in formalin, labeled "biopsy transverse colon" are 2 junior, irregular portions of soft tissue averaging 0.4 cm. in greatest dimension. The specimens are submitted in toto in one cassette. E. Received in formalin, labeled "biopsy descending colon" are 2 junior, irregular portions of soft tissue measuring 0.4 and 0.5 cm. in greatest dimension. The specimens are submitted in toto in one cassette. F. Received in formalin, labeled "biopsy sigmoid" are 5 junior, irregular portions of soft tissue ranging from 0.1-0.6 cm. in greatest dimension. The specimens are submitted in toto in one cassette. G. Received in formalin, labeled "biopsy rectum" are 2 junior, irregular portions of soft tissue measuring 0.4 and 0.5 cm. in greatest dimension. The specimens are submitted in toto in one cassette. 08/27/201708/27/2017
== END 2017-08-28 13:00 | disposition home or self-care (01) | DRG 253 ==
LOC: JER 08:01 → JERBED 14:12 → OBSVTOIN 14:12 → J8W 16:22
PROVIDERS: ADMIT Internal Medicine; ATTEND Nurse Practitioner Acute Care
PROC: 0DDM8ZX Extraction of Descending Colon, Via Natural or Artificial Opening Endoscopic, Diagnostic (ICD-10-PCS; 2017-08-27)
PROC: 0DDL8ZX Extraction of Transverse Colon, Via Natural or Artificial Opening Endoscopic, Diagnostic (ICD-10-PCS; 2017-08-27)
PROC: 0DDK8ZX Extraction of Ascending Colon, Via Natural or Artificial Opening Endoscopic, Diagnostic (ICD-10-PCS; 2017-08-27)
PROC: 0DDN8ZX Extraction of Sigmoid Colon, Via Natural or Artificial Opening Endoscopic, Diagnostic (ICD-10-PCS; 2017-08-27)
PROC: 0DDP8ZX Extraction of Rectum, Via Natural or Artificial Opening Endoscopic, Diagnostic (ICD-10-PCS; 2017-08-27)
PROC: 0DBH8ZX Excision of Cecum, Via Natural or Artificial Opening Endoscopic, Diagnostic (ICD-10-PCS; 2017-08-27)
PROC: 0DDB8ZX Extraction of Ileum, Via Natural or Artificial Opening Endoscopic, Diagnostic (ICD-10-PCS; principal; 2017-08-27 15:15)
DX: K92.2 Gastrointestinal hemorrhage, unspecified (principal); K52.9 Noninfective gastroenteritis and colitis, unspecified; D50.9 Iron deficiency anemia, unspecified; D25.9 Leiomyoma of uterus, unspecified; E66.9 Obesity, unspecified; Z68.41 Body mass index [BMI] 40.0-44.9, adult; D12.0 Benign neoplasm of cecum
CPT/HCPCS: 36415; 70450-TC; 74177-TC; 80048; 80053; 81003; 81015; 82272; 82728; 83540; 83550; 83735; 84100; 84466; 84703; 85025; 85027; 85610; 86850; 86900; 86901; 87086; 88305-TC; 93005; 93010; 93306-TC; 99283-25; J1756; J7030

== ENCOUNTER 2017-10-11 09:55 | Emergency (ER) | payer OTHER ==
[2017-10-11 10:06] VITALS: BMI 39.4
--- NOTE | 2017-10-11 10:14 | PDOC ---
History of Present Illness - General Chief Complaint: Rectal Bleed Stated Complaint: RECTAL BLEEDING Time Seen by Provider: 10/11/17 10:14 - History of Present Illness Initial Comments: 10/11/17 10:59 47 yo F w a hx of Colitis in August is here bc last night she started having bloody diarrhea, LLQ abdominal pain with mild radiation towards the vagina, cramps, and a subjective fever of 100. She reports that her stool was bloody and there was blood in the toilet bowl yesterday. She endorses nausea but no emesis. She had a workup for colitis in August and a colonoscopy showed multiple regions of colonic erythema. She endorses dysuria and pink colored urine. She started having her period last night. She denies taking any meds especially not NSAIDs, denies recent travel or infections, denies headache rash, chest pain, sob. 10/11/17 11:12 10/11/17 11:19 Past History - Past Medical History Allergies/Adverse Reactions: Allergies Allergy/AdvReac Type Severity Reaction Status Date / Time No Known Allergies Allergy Verified 10/11/17 10:03 Home Medications: Ambulatory Orders NK [No Known Home Medication] 10/11/17 Anemia: Yes COPD: No - Suicide/Smoking/Psychosocial Hx Smoking History: Never smoked Have you smoked in the past 12 months: No Information on smoking cessation initiated: No Hx Alcohol Use: No Drug/Substance Use Hx: No Substance Use Type: None Review of Systems - Review of Systems Comments:: 10/11/17 11:21 CONSTITUTIONAL: Positive: Fever Absent: chills, diaphoresis, generalized weakness, malaise, loss of appetite HEENT: Absent: rhinorrhea, nasal congestion, throat pain, throat swelling, difficulty swallowing, mouth swelling, ear pain, eye pain, visual Changes CARDIOVASCULAR: Absent: chest pain, syncope, palpitations, irregular heart rate, lightheadedness , peripheral edema RESPIRATORY: Absent: cough, shortness of breath, dyspnea with exertion, orthopnea, wheezing, stridor, hemoptysis GASTROINTESTINAL: Positive: LLQ abdominal pain, nausea, bloody diarrhea, hematochezia, melena Absent: abdominal distension, vomiting, constipation, GENITOURINARY: Positive: Dysuria, urgency, hematuria Absent: frequency, hesitancy, flank pain, genital pain MUSCULOSKELETAL: Absent: myalgia, arthralgia, joint swelling SKIN: Absent: rash, itching, pallor HEMATOLOGIC/IMMUNOLOGIC: Absent: easy bleeding, easy bruising, lymphadenopathy, frequent infections ENDOCRINE: Absent: unexplained weight gain, unexplained weight loss, heat intolerance, cold intolerance NEUROLOGIC: Absent: headache, focal weakness or paresthesias, dizziness, unsteady gait, seizure, mental status changes, bladder or bowel incontinence PSYCHIATRIC: Absent: anxiety, depression, suicidal or homicidal ideation, hallucinations. *Physical Exam - Vital Signs Last Vital Signs Temp Pulse Resp BP Pulse Ox 97.7 F 75 18 156/86 100 10/11/17 10:03 10/11/17 10:03 10/11/17 10:03 10/11/17 10:03 10/11/17 10:03 - Physical Exam Comments: 10/11/17 11:23 ABDOMINAL: There is TTP in the LLQ. otherwise the abdomen is soft. Non-tender in the other 3 quadrants, Non-distended. No rebound or guarding. No organomegaly. Normoactive bowel sounds. Rectum: There is no external blood. No external or internal hemmorhoids appreciated. GENERAL: Well developed, well nourished. Awake and alert. No acute distress. HEENT: Normocephalic, atraumatic. PERRLA, EOMI. No conjunctival pallor. Sclera are non- icteric. Moist mucous membranes. Oropharynx is clear. NECK: Supple. Full ROM. No JVD. Carotid pulses 2+ and symmetric, without bruits. No thyromegaly. No lymphadenopathy. CARDIOVASCULAR: Regular rate and rhythm. No murmurs, rubs, or gallops. Distal pulses are 2+ and symmetric. PULMONARY: No evidence of respiratory distress. Lungs clear to auscultation bilaterally. No wheezing, rales or rhonchi. MUSCULOSKELETAL Normal range of motion at all joints. No bony deformities or tenderness. No CVA tenderness. EXTREMITIES: No cyanosis. No clubbing. No edema. No calf tenderness. SKIN: Warm and dry. Normal capillary refill. No rashes. No jaundice. NEUROLOGICAL: Alert, awake, appropriate. Cranial nerves 2-12 intact. No deficits to light touch and temperature in face, upper extremities and lower extremities. No motor deficits in the in face, upper extremities and lower extremities. Normoreflexic in the upper and lower extremities. Normal speech. Toes are down-going bilaterally. Gait is normal without ataxia. PSYCHIATRIC: Cooperative. Good eye contact. Appropriate mood and affect. 10/11/17 11:28 ED Treatment Course - LABORATORY CBC & Chemistry Diagram: 10/11/17 14:10 10/11/17 11:32 Medical Decision Making - Medical Decision Making 10/11/17 11:25 47 yo F w a hx of colitis 2 months ago is here with bloody diarrhea starting last night. She had a colonoscopy in August which showed significant colonic erythema. Differential: Colitis, diverticulitis, infection, uti. Plan: cbc, cmp, UA, CT abdomen, fluids, re-assess. Re-assessment: CT was normal. checked Hb twice 4 hours apart and were both normal. Patient can tolerate PO and has all her vital WNL. Going to DC her with GI FU. 10/11/17 14:34 *DC/Admit/Observation/Transfer Diagnosis at time of Disposition: GI bleed, Rectal bleed, Bloody diarrhea - Discharge Dispostion Disposition: HOME Condition at time of disposition: Improved Decision to Admit order: No - Referrals Referrals: Sergio Mars MD [Staff Physician] - - Patient Instructions Printed Discharge Instructions: DI for Rectal Bleeding Additional Instructions: Please make sure to follow up with the [facility] [employer] we are referring you to in the next 5 days. Make sure to come back to the ER if your bloody diarrhea gets worse, you start developing a fever, or other new or concerning symptoms. Take Tylenol for pain as needed. - Post Discharge Activity
--- NOTE | 2017-10-11 11:25 | PDOC ---
Attending Attestation - Resident Resident Name: Mason Canales - ED Attending Attestation I have performed the following: I have examined & evaluated the patient, The case was reviewed & discussed with the resident, I agree w/resident's findings & plan, Exceptions are as noted - HPI HPI: 10/11/17 11:55 The patient is a 47 year old female (), with a significant past medical history of anemia, colitis c/b GI bleeding due to NSAID use (admitted 1 month ago), who presents to the emergency department complaining of 1 day LLQ pain and rectal bleeding. The patient reports that the LLQ pain radiates to her pelvic area, which began last night with 1 episode of diarrhea. LMP is yesterday. The patient states that the toilet had drops of red blood, and that her stool was pink-ramirez in color. Denies filling toilet with blood. Denies clots. She is not sure if this is bleeding from her menstrual cycle. She endorses a subjective fever and nausea last night as well. She notes that this is the first episode of blood since her visit last month. The patient denies chest pain, shortness of breath, headache, and dizziness. Denies vomiting and constipation. Denies dysuria, frequency, urgency, and hematuria. Allergies: NKA Past surgical history: none reported Social history: No reported cigarette, alcohol, or drug use. PCP: unknown - Physicial Exam PE: 10/11/17 11:58 GENERAL: Awake, alert, and fully oriented, in no acute distress HEAD: No signs of trauma EYES: PERRLA, EOMI, sclera anicteric, conjunctiva clear ENT: Auricles normal inspection, hearing grossly normal, nares patent, oropharynx clear without exudates. Moist mucosa NECK: Normal ROM, supple, no lymphadenopathy, JVD, or masses LUNGS: Breath sounds equal, clear to auscultation bilaterally. No wheezes, and no crackles HEART: Regular rate and rhythm, normal S1 and S2, no murmurs, rubs or gallops ABDOMEN: Soft, +LLQ ttp, normoactive bowel sounds. No guarding, no rebound. No masses RECTAL: see Dr. Canales note EXTREMITIES: Normal range of motion, no edema. No clubbing or cyanosis. No cords, erythema, or tenderness NEUROLOGICAL: Normal speech, cranial nerves intact, negative pronator drift, 5/ 5 strength in all 4 extremities, normal sensation to light touch in all 4 extremities, normal cerebellar exam, normal gait, normal reflexes and tone SKIN: Warm, Dry, normal turgor, no rashes or lesions noted. - Medical Decision Making 10/11/17 11:23 47yo F recent admission for colitis c/b GIB due to NSAID use presents to the ED with bloody stools. Pt currently on her period and is unsure if the blood is from her period or mixed with poop. Pt also c/o LLQ pain, and tender in LLQ. Vitals wnl, DDx includes colitis vs diverticulitis vs gastroenteritis. Plan -labs -UPT -UA -CTAP -reassess <Chris Nava - Last Filed: 10/11/17 11:55> - Medical Decision Making 10/11/17 13:43 Abdomen/Pelvis CT was reviewed by Dr. Nava and over-read by Radiology. IMPRESSION: No acute intra-abdominal process noted. There is no evidence of colitis or diverticulitis. No drainable fluid collections seen. No mesenteric stranding seen. Additional comments noted above. Documentation prepared by Jess Feliz, acting as medical instrument cable fabricator for Chris Nava MD. <Jess Feliz - Last Filed: 10/11/17 13:43>
[2017-10-11 11:47] LABS: BASO % 0.4 % (0-2.0); EOS % 0.3 % (0-4.5); HEMATOCRIT 34.9 % (32.4-45.2); HEMOGLOBIN 11.7 GM/dL (10.7-15.3); LYMPH % 19.3 % (8-40); MCH 26.9 pg (25.7-33.7); MCHC 33.5 g/dl (32.0-36.0); MEAN CELL VOLUME 80.5 fl (80-96); MEAN PLT VOLUME 8.1 fl (7.5-11.1); MONO % 6.3 % (3.8-10.2); NEUT % 73.7 % (42.8-82.8); PLATELET COUNT 288 K/MM3 (134-434); RBC 4.33 M/mm3 (3.60-5.2); URINE APPEARANCE CLEAR; URINE BILIRUBIN NEGATIVE (<2.0 mg/dL); URINE COLOR LTYELLOW; URINE GLUCOSE (UA) NEGATIVE (NEGATIVE); URINE KETONE NEGATIVE (NEGATIVE); URINE LEUK ESTERASE NEGATIVE (NEGATIVE); URINE NITRITE NEGATIVE (NEGATIVE); URINE PROTEIN NEGATIVE (NEGATIVE); URINE UROBILINOGEN NEGATIVE mg/dL (0.2-1.0); WHITE BLOOD COUNT 7.1 K/mm3 (4.0-10.0)
[2017-10-11 11:52] LABS: EPI CELLS RARE /HPF (FEW)
[2017-10-11 11:56] LABS: ANION GAP 7 (8-16); BILIRUBIN,TOTAL 0.4 mg/dL (0.2-1.0); BLOOD UREA NITROGEN 14 mg/dL (7-18); CALCIUM 9.1 mg/dL (8.5-10.1); CHLORIDE 108 mmol/L (98-107); CO2 29 mmol/L (21-32); CREATININE 0.7 mg/dL (0.55-1.02); GLUCOSE,RANDOM 101 mg/dL (74-106); POTASSIUM 4.3 mmol/L (3.5-5.1); SGOT/AST 15 U/L (15-37); SGPT/ALT 31 U/L (12-78); SODIUM 144 mmol/L (136-145); TOT PROT 7.8 g/dl (6.4-8.2)
[2017-10-11 11:59] LABS: ALK PHOS 73 U/L (45-117)
[2017-10-11 14:18] LABS: HEMOGLOBIN 12.1 GM/dL (10.7-15.3); MCH 26.4 pg (25.7-33.7); MCHC 32.7 g/dl (32.0-36.0); MEAN CELL VOLUME 80.8 fl (80-96); PLATELET COUNT 290 K/MM3 (134-434); RBC 4.58 M/mm3 (3.60-5.2); RDW 16.1 % (11.6-15.6); WHITE BLOOD COUNT 7.7 K/mm3 (4.0-10.0)
[2017-10-11 14:31] VITALS: BP 134/75; PULSE 64; TEMP 98
== END 2017-10-11 15:14 | disposition home or self-care (01) ==
LOC: JER 09:55
DX: K62.5 Hemorrhage of anus and rectum (principal); K52.9 Noninfective gastroenteritis and colitis, unspecified
CPT/HCPCS: 36415; 74177-TC; 80053; 81003; 81015; 82272; 84702; 85025; 85027; 86850; 86900; 86901; 99283-25

== ENCOUNTER 2018-06-06 11:27 | Emergency (ER) | payer OTHER ==
[2018-06-06 11:42] VITALS: BP 143/76; PULSE 89; TEMP 97.6; BMI 39.7
[2018-06-06 16:19] LABS: HCG,QUALITATIVE URINE Negative; URINE APPEARANCE CLEAR; URINE BILIRUBIN NEGATIVE (<2.0 mg/dL); URINE COLOR LTYELLOW; URINE GLUCOSE (UA) NEGATIVE (NEGATIVE); URINE KETONE NEGATIVE (NEGATIVE); URINE LEUK ESTERASE NEGATIVE (NEGATIVE); URINE NITRITE NEGATIVE (NEGATIVE); URINE PROTEIN 1+ (NEGATIVE); URINE UROBILINOGEN NEGATIVE mg/dL (0.2-1.0)
[2018-06-06 16:38] LABS: EPI CELLS RARE /HPF (FEW); URINE BACTERIA RARE /hpf (NONE SEEN); URINE MUCUS RARE
--- NOTE | 2018-06-06 16:43 | PDOC ---
History of Present Illness <Elicia Britt Halimavilma - Last Filed: 06/06/18 17:44> - General History Source: Patient Exam Limitations: No Limitations - History of Present Illness Initial Comments: 06/06/18 16:42 47-year-old female presents to ED with complaints of mild generalized weakness, dizziness mild shortness of breath on exertion and palpitations with exertion. Patient denies difficulty breathing rest, lower extremity edema, history of cardiac disease but states history of anemia secondary to heavy menses and takes iron tablets. Patient does state history of colitis and have bloody diarrhea last year which she states she was discharged home to follow-up with her ballistics tester. Timing/Duration: constant (x 2days) Severity: mild Associated Symptoms: reports: shortness of breath (w/ exertion ), weakness (mild ) <Josie Daniel - Last Filed: 06/06/18 18:00> - General Chief Complaint: Chest Pain Stated Complaint: CHEST PAIN Time Seen by Provider: 06/06/18 14:06 Past History <BrittElicianan Jean - Last Filed: 06/06/18 17:44> - Travel Traveled outside of the country in the last 30 days: No Close contact w/someone who was outside of country & ill: No - Past Medical History Anemia: Yes COPD: No - Immunization History Immunization Up to Date: Yes - Suicide/Smoking/Psychosocial Hx Smoking History: Never smoked Have you smoked in the past 12 months: No Information on smoking cessation initiated: No Hx Alcohol Use: No Drug/Substance Use Hx: No Substance Use Type: None Patient Lives Alone: No Lives with/in: spouse/SO <Josie Daniel - Last Filed: 06/06/18 18:00> - Past Medical History Allergies/Adverse Reactions: Allergies Allergy/AdvReac Type Severity Reaction Status Date / Time No Known Allergies Allergy Verified 06/06/18 11:43 Home Medications: Ambulatory Orders Ergocalciferol (Vitamin D2) [Vitamin D2] 50,000 unit PO WEEKLY 06/06/18 Ferrous Sulfate [Iron] 0 mg PO DAILY 06/06/18 Review of Systems - Review of Systems Able to Perform ROS?: No Constitutional: Yes: Weakness HEENTM: No: Symptoms Reported Respiratory: Yes: SOB with Exertion Cardiac (ROS): Yes: Palpitations ABD/GI: No: Symptoms Reported : No: Symptoms Reported Musculoskeletal: No: Symptoms Reported Integumentary: No: Symptoms Reported Neurological: Yes: Weakness, Dizziness Hematologic/Lymphatic: No: Symptoms Reported <Josie Daniel - Last Filed: 06/06/18 18:00> *Physical Exam - Vital Signs Last Vital Signs Temp Pulse Resp BP Pulse Ox 97.6 F 89 18 143/76 100 06/06/18 11:38 06/06/18 11:38 06/06/18 11:38 06/06/18 11:38 06/06/18 11:38 <BrittElicianan Jean - Last Filed: 06/06/18 17:44> - Vital Signs Last Vital Signs Temp Pulse Resp BP Pulse Ox 97.6 F 89 18 143/76 100 06/06/18 11:38 06/06/18 11:38 06/06/18 11:38 06/06/18 11:38 06/06/18 11:38 - Physical Exam General Appearance: Yes: Nourished, Appropriately Dressed. No: Apparent Distress HEENT: positive: TMs Normal, Pharynx Normal. negative: Pale Conjunctivae Neck: positive: Normal Thyroid, Supple Respiratory/Chest: positive: Lungs Clear, Normal Breath Sounds. negative: Respiratory Distress, Accessory Muscle Use Cardiovascular: positive: Regular Rhythm, Regular Rate. negative: Murmur Gastrointestinal/Abdominal: positive: Soft. negative: Tenderness Integumentary: positive: Normal Color, Warm, Moist Neurologic: positive: Motor Strength 5/5 (ambulatory) <Josie Daniel - Last Filed: 06/06/18 18:00> Moderate Sedation - Procedure Monitoring Vital Signs: Procedure Monitoring Vital Signs Temperature 97.6 F 06/06/18 11:38 Pulse Rate 89 06/06/18 11:38 Respiratory Rate 18 06/06/18 11:38 Blood Pressure 143/76 06/06/18 11:38 O2 Sat by Pulse Oximetry (%) 100 06/06/18 11:38 <Elicia Britt - Last Filed: 06/06/18 17:44> - Procedure Monitoring Vital Signs: Procedure Monitoring Vital Signs Temperature 97.6 F 06/06/18 11:38 Pulse Rate 89 06/06/18 11:38 Respiratory Rate 18 06/06/18 11:38 Blood Pressure 143/76 06/06/18 11:38 O2 Sat by Pulse Oximetry (%) 100 06/06/18 11:38 <Josie Daniel - Last Filed: 06/06/18 18:00> Heart Score/ECG Review - ECG Intrepretation Rhythm: Regular Rhythm (rate 95, nsr, no st elevattion or depression) <Josie Daniel - Last Filed: 06/06/18 18:00> ED Treatment Course - LABORATORY CBC & Chemistry Diagram: 06/06/18 16:00 06/06/18 16:00 - ADDITIONAL ORDERS Additional order review: Laboratory Results 06/06/18 06/06/18 06/06/18 16:00 16:00 15:15 D-Dimer 222 Sodium 138 Potassium 3.8 Chloride 105 Carbon Dioxide 30 Anion Gap 3 L BUN 11 Creatinine 0.6 Creat Clearance w eGFR 106.70 Random Glucose 117 H Calcium 8.8 Total Bilirubin 0.3 AST 18 ALT 39 Alkaline Phosphatase 70 Creatine Kinase 100 Troponin I < 0.02 Total Protein 7.7 Albumin 3.8 Urine Color Ltyellow Urine Appearance Clear Urine pH 7.0 D Ur Specific [place] 1.014 Urine Protein 1+ H Urine Glucose (UA) Negative Urine Ketones Negative Urine Blood 1+ H Urine Nitrite Negative Urine Bilirubin Negative Urine Urobilinogen Negative Ur Leukocyte Esterase Negative Urine WBC (Auto) 3 Urine RBC (Auto) <1 Ur Epithelial Cells Rare Urine Bacteria Rare Urine Mucus Rare Urine HCG, Qual Negative 06/06/18 16:00 RBC 3.93 MCV 85.4 MCHC 34.2 RDW 17.3 H MPV 7.4 L Neutrophils % 61.8 Lymphocytes % 31.2 D Monocytes % 5.8 Eosinophils % 0.9 D Basophils % 0.3 <Elicia Britt - Last Filed: 06/06/18 17:44> - LABORATORY CBC & Chemistry Diagram: 06/06/18 16:00 06/06/18 16:00 - ADDITIONAL ORDERS Additional order review: Laboratory Results 06/06/18 15:15 Urine Color Ltyellow Urine Appearance Clear Urine pH 7.0 D Ur Specific [place] 1.014 Urine Protein 1+ H Urine Glucose (UA) Negative Urine Ketones Negative Urine Blood 1+ H Urine Nitrite Negative Urine Bilirubin Negative Urine Urobilinogen Negative Ur Leukocyte Esterase Negative Urine WBC (Auto) 3 Urine RBC (Auto) <1 Ur Epithelial Cells Rare Urine Bacteria Rare Urine Mucus Rare Urine HCG, Qual Negative - RADIOLOGY Radiology Studies Ordered: Category Date Time Status CHEST X-RAY PORTABLE* [RAD] Stat Radiology 06/06/18 14:08 Ordered <Josie Daniel - Last Filed: 06/06/18 18:00> Medical Decision Making - Medical Decision Making The patient was seen and evaluated in conjunction with midlevel provider under my direct supervision, ancillary studies were reviewed. I agree with the plan as outlined by_ RUTH ANN Daniel. HPI, workup/dispo as outlined. VS reviewed, wnl. labs and lytes normal dimer and trop neg. cxr no acute pathology. DC in stable condition, PCP followup 06/06/18 17:44 <Elicia Britt - Last Filed: 06/06/18 17:44> - Medical Decision Making 06/06/18 15:57 CC: mild weakness, dizziness, palpitations and sob with exertion, no complaints while at rest, Pt w/ anemia and takes iron as prescribed Exam: vss, nsr, no acute findings Plan: labs, ekg, cxr 06/06/18 17:00 Laboratory Tests 06/06/18 06/06/18 15:15 16:00 WBC 5.7 Hgb 11.5 Hct 33.5 RDW 17.3 H MPV 7.4 L Urine Protein 1+ H Urine Blood 1+ H Ur Leukocyte Esterase Negative Urine WBC (Auto) 3 Urine RBC (Auto) <1 Urine HCG, Qual Negative 06/06/18 17:35 Laboratory Tests 06/06/18 06/06/18 16:00 16:00 D-Dimer 222 Sodium 138 Potassium 3.8 Chloride 105 Carbon Dioxide 30 Anion Gap 3 L BUN 11 Creatinine 0.6 Random Glucose 117 H Calcium 8.8 Total Bilirubin 0.3 AST 18 ALT 39 Alkaline Phosphatase 70 Creatine Kinase 100 Troponin I < 0.02 Total Protein 7.7 Albumin 3.8 CXr - for acute findings. Pt requesting to go home. Discharge home with and recommend to continue iron tabs <Josie Daniel - Last Filed: 06/06/18 18:00> *DC/Admit/Observation/Transfer <Elicia Britt - Last Filed: 06/06/18 17:44> <Josie Daniel - Last Filed: 06/06/18 18:00> Diagnosis at time of Disposition: Weakness - Discharge Dispostion Disposition: HOME Condition at time of disposition: Good - Patient Instructions Printed Discharge Instructions: DI for Anemia of Chronic Disease Additional Instructions: Please follow up with your doctors and continue to take medications as prescribed. - Post Discharge Activity Forms/Work/School Notes: Back to Work
[2018-06-06 16:45] LABS: BASO % 0.3 % (0-2.0); EOS % 0.9 % (0-4.5); HEMATOCRIT 33.5 % (32.4-45.2); HEMOGLOBIN 11.5 GM/dL (10.7-15.3); LYMPH % 31.2 % (8-40); MCH 29.2 pg (25.7-33.7); MCHC 34.2 g/dl (32.0-36.0); MEAN CELL VOLUME 85.4 fl (80-96); MEAN PLT VOLUME 7.4 fl (7.5-11.1); MONO % 5.8 % (3.8-10.2); NEUT % 61.8 % (42.8-82.8); PLATELET COUNT 346 K/MM3 (134-434); RBC 3.93 M/mm3 (3.60-5.2); RDW 17.3 % (11.6-15.6); WHITE BLOOD COUNT 5.7 K/mm3 (4.0-10.0)
[2018-06-06 17:14] LABS: ALBUMIN 3.8 g/dl (3.4-5.0); ALK PHOS 70 U/L (45-117); ANION GAP 3 MMOL/L (8-16); BILIRUBIN,TOTAL 0.3 mg/dL (0.2-1); BLOOD UREA NITROGEN 11 mg/dL (7-18); CALCIUM 8.8 mg/dL (8.5-10.1); CHLORIDE 105 mmol/L (98-107); CO2 30 mmol/L (21-32); CREATININE 0.6 mg/dL (0.55-1.3); GLUCOSE,RANDOM 117 mg/dL (74-106); POTASSIUM 3.8 mmol/L (3.5-5.1); SGOT/AST 18 U/L (15-37); SGPT/ALT 39 U/L (13-61); SODIUM 138 mmol/L (136-145); TOT PROT 7.7 g/dl (6.4-8.2)
--- NOTE | 2018-06-07 11:11 | EKG ---
Test Reason : Blood Pressure : / mmHG Vent. Rate : 095 BPM Atrial Rate : 095 BPM P-R Int : 122 ms QRS Dur : 092 ms QT Int : 364 ms P-R-T Axes : 060 016 048 degrees QTc Int : 457 ms NORMAL SINUS RHYTHM NORMAL ECG WHEN COMPARED WITH ECG OF 25-AUG-2017 09:54, NONSPECIFIC T WAVE ABNORMALITY, IMPROVED IN ANTEROLATERAL LEADS Confirmed by MATHEW BETHEA MD ([id number]) on 06/07/2018 11:11:04 AM Referred By: Confirmed By:MATHEW BETHEA MD
== END 2018-06-06 18:15 | disposition home or self-care (01) ==
LOC: JER 11:27
DX: D64.9 Anemia, unspecified (principal)
CPT/HCPCS: 36415; 71045-TC-FY; 80053; 81003; 81015; 82550; 84484; 84703; 85025; 85379; 93005; 93010; 99283-25

== ENCOUNTER 2020-03-30 07:02 | Emergency (ER) | payer OTHER ==
[2020-03-30 07:53] VITALS: BMI 38.2
[2020-03-30] MEDS ORDERED: SODIUM CHLORIDE 1,000 ML IV STA (08:12)
[2020-03-30 09:18] LABS: EPI CELLS 29 /uL (0-25.1); HYALINE CASTS 1 /uL (0-3.1); URINE APPEARANCE CLOUDY; URINE BACTERIA 613 /uL (0-1359); URINE BILIRUBIN NEGATIVE (NEGATIVE); URINE COLOR YELLOW; URINE GLUCOSE (UA) NEGATIVE (NEGATIVE); URINE KETONE NEGATIVE (NEGATIVE); URINE LEUK ESTERASE NEGATIVE (NEGATIVE); URINE NITRITE NEGATIVE (NEGATIVE); URINE PROTEIN TRACE (NEGATIVE); URINE UROBILINOGEN 0.2 mg/dL (0.2-1.0); URINE WBC 11 /uL (0-25.8)
[2020-03-30 09:19] LABS: BASO % 0.4 % (0-2.0); EOS % 0.4 % (0-4.5); HEMATOCRIT 26.6 % (32.4-45.2); HEMOGLOBIN 8.4 GM/dL (10.7-15.3); LYMPH % 20.4 % (8-40); MCH 24.4 pg (25.7-33.7); MCHC 31.7 g/dl (32.0-36.0); MEAN PLT VOLUME 7.7 fl (7.5-11.1); MONO % 7.4 % (3.8-10.2); NEUT % 71.4 % (42.8-82.8); PLATELET COUNT 387 K/MM3 (134-434); RBC 3.45 M/mm3 (3.60-5.2); RDW 17.1 % (11.6-15.6)
[2020-03-30 09:24] LABS: INR 1.08 (0.83-1.09)
[2020-03-30 09:28] LABS: HCG,QUALITATIVE URINE Negative
[2020-03-30 09:30] LABS: CHLORIDE 103 mmol/L (98-107); SODIUM 136 mmol/L (136-145)
[2020-03-30 09:32] LABS: ALBUMIN 3.9 g/dl (3.4-5.0); ANION GAP 5 MMOL/L (8-16); CALCIUM 9.1 mg/dL (8.5-10.1); CO2 28 mmol/L (21-32)
[2020-03-30 09:33] LABS: GLUCOSE,RANDOM 99 mg/dL (74-106)
[2020-03-30 09:35] LABS: SGOT/AST 12 U/L (15-37); SGPT/ALT 15 U/L (13-61)
[2020-03-30 09:36] LABS: CREATININE 0.9 mg/dL (0.55-1.3)
[2020-03-30 09:37] LABS: BILIRUBIN,TOTAL 0.4 mg/dL (0.2-1); TOT PROT 7.7 g/dl (6.4-8.2)
[2020-03-30 09:38] LABS: ALK PHOS 56 U/L (45-117)
[2020-03-30 11:19] LABS: URINE RBC 168.1 /uL (0-23.9)
[2020-03-30 11:21] LABS: YEAST NONE SEEN (NEGATIVE)
[2020-03-30 14:27] VITALS: BP 132/71; PULSE 70; TEMP 98.4
== END 2020-03-30 14:30 | disposition home or self-care (01) ==
LOC: JER 07:02
PROC: 3E0337Z Introduction of Electrolytic and Water Balance Substance into Peripheral Vein, Percutaneous Approach (ICD-10-PCS; principal; 2020-03-30)
DX: D64.9 Anemia, unspecified (principal)
CPT/HCPCS: 36415; 76830-TC; 80053; 81003; 82550; 84484; 84703; 85025; 85610; 86850; 86900; 86901; 87086; 93005; 93010; 99285-25

== ENCOUNTER 2020-04-21 04:31 | Day surgery (SDC) | payer OTHER ==
[2020-04-20 13:13] VITALS: BMI 37.9
[2020-04-21] MEDS ORDERED: PROPOFOL 20 ML ONE ×4 (13:10→13:30)
[2020-04-21] MEDS ORDERED: KETOROLAC TROMETHAMINE 30 MG/1 ML VIAL ONE (13:10)
[2020-04-21] MEDS ORDERED: DEXAMETHASONE SOD PHOSPHATE 4 MG/1 ML VIAL ONE (13:10)
[2020-04-21] MEDS ORDERED: MIDAZOLAM HCL 2 MG/2 ML SINGLE DOSE VIAL ONE (13:10)
[2020-04-21 16:34] VITALS: BP 119/73; PULSE 88; TEMP 97.4
== END 2020-04-21 16:25 | disposition home or self-care (01) ==
LOC: JASU-SURG 04:31
PROVIDERS: ATTEND Obstetrics & Gynecology
PROC: 0UDB7ZX Extraction of Endometrium, Via Natural or Artificial Opening, Diagnostic (ICD-10-PCS; principal; 2020-04-21 13:00)
PROC: 0UJD8ZZ Inspection of Uterus and Cervix, Via Natural or Artificial Opening Endoscopic (ICD-10-PCS; 2020-04-21 13:00)
DX: N93.9 Abnormal uterine and vaginal bleeding, unspecified (principal); D25.9 Leiomyoma of uterus, unspecified; N84.0 Polyp of corpus uteri
CPT/HCPCS: 84703; 88305-TC; 94760

== ENCOUNTER 2021-01-27 10:46 | Emergency (ER) | payer OTHER ==
[2021-01-27 11:10] VITALS: BP 142/70; PULSE 96; TEMP 98.5; BMI 32.8
== END 2021-01-27 12:40 | disposition home or self-care (01) ==
LOC: JER 10:46
DX: J06.9 Acute upper respiratory infection, unspecified (principal); R05.1 Acute cough; R09.81 Nasal congestion; Z11.52 Encounter for screening for COVID-19
CPT/HCPCS: 71046-TC-FY; 99283-25; C9803; U0003; U0005

== ENCOUNTER 2021-12-14 10:07 | Emergency (ER) | payer OTHER ==
[2021-12-14 10:38] VITALS: BMI 37.1
[2021-12-14] MEDS ORDERED: IBUPROFEN 400 MG TABLET (FP) PO ONE ×2 (11:32→11:45)
[2021-12-14 12:06] LABS: EPI CELLS 11 /uL (0-25.1); HYALINE CASTS 0 /uL (0-3.1); PH,URINE 8.5 (5.0-8.0); URINE APPEARANCE CLEAR; URINE BACTERIA 26 /uL (0-1359); URINE BILIRUBIN NEGATIVE (NEGATIVE); URINE COLOR YELLOW; URINE GLUCOSE (UA) NEGATIVE (NEGATIVE); URINE KETONE NEGATIVE (NEGATIVE); URINE LEUK ESTERASE TRACE (NEGATIVE); URINE NITRITE NEGATIVE (NEGATIVE); URINE PROTEIN NEGATIVE (NEGATIVE); URINE RBC 597 /uL (0-23.9); URINE UROBILINOGEN 0.2 mg/dL (0.2-1.0); URINE WBC 6 /uL (0-25.8)
[2021-12-14 12:07] LABS: HCG,QUALITATIVE URINE Negative
[2021-12-14 13:18] VITALS: BP 145/87; PULSE 62; RESP 62; TEMP 97.9
== END 2021-12-14 13:17 | disposition home or self-care (01) ==
LOC: JER 10:07
DX: S39.012A Strain of muscle, fascia and tendon of lower back, initial encounter (principal); S56.911A Strain of unspecified muscles, fascia and tendons at forearm level, right arm, initial encounter; R31.9 Hematuria, unspecified; Y99.9 Unspecified external cause status
CPT/HCPCS: 81003; 84703; 99283-25

== ENCOUNTER 2022-07-07 20:04 | Observation (INO) | payer OTHER ==
[2022-07-07 20:09] VITALS: BMI 38.0
[2022-07-07] MEDS ORDERED: SODIUM CHLORIDE 0.9% 500 ML INFUS.BAG IV ONE (20:27)
[2022-07-07] MEDS ORDERED: ACETAMINOPHEN 1000 MG/100 ML BAG IVPB ONE (20:27)
[2022-07-07] MEDS ORDERED: METOCLOPRAMIDE HCL INJECTION 10 MG/2 ML VIAL IVPB ONE (20:27)
[2022-07-07] MEDS ORDERED: METOCLOPRAMIDE HCL INJECTION 10 MG/2 ML VIAL ONE (20:59)
[2022-07-07] MEDS ORDERED: ACETAMINOPHEN INJECTION 100 ML IVPB ONE (20:59)
[2022-07-07 21:34] LABS: BASO % 0.5 % (0-2.0); EOS % 0.4 % (0-4.5); HEMATOCRIT 37.2 % (32.4-45.2); HEMOGLOBIN 12.9 GM/dL (10.7-15.3); LYMPH % 28.7 % (8-40); MCH 29.6 pg (25.7-33.7); MCHC 34.6 g/dl (32.0-36.0); MEAN CELL VOLUME 85.6 fl (80-96); MEAN PLT VOLUME 8.6 fl (7.5-11.1); MONO % 8.9 % (3.8-10.2); NEUT % 61.5 % (42.8-82.8); PLATELET COUNT 238 10^3/uL (134-434); RBC 4.34 M/mm3 (3.60-5.2); RDW 13.2 % (11.6-15.6); WHITE BLOOD COUNT 6.3 K/mm3 (4.0-10.0)
[2022-07-07 21:38] LABS: EPI CELLS 31 /uL (0-25.1); HYALINE CASTS 0 /uL (0-3.1); URINE APPEARANCE CLEAR; URINE BACTERIA 487 /uL (0-1359); URINE BILIRUBIN NEGATIVE (NEGATIVE); URINE COLOR YELLOW; URINE GLUCOSE (UA) NEGATIVE (NEGATIVE); URINE KETONE NEGATIVE (NEGATIVE); URINE LEUK ESTERASE NEGATIVE (NEGATIVE); URINE NITRITE NEGATIVE (NEGATIVE); URINE PROTEIN NEGATIVE (NEGATIVE); URINE RBC 37 /uL (0-23.9); URINE UROBILINOGEN 0.2 mg/dL (0.2-1.0); URINE WBC 9 /uL (0-25.8)
[2022-07-07 21:44] LABS: CALCIUM 9.4 mg/dL (8.5-10.1)
[2022-07-07 21:45] LABS: ALBUMIN 3.8 g/dl (3.4-5.0); BLOOD UREA NITROGEN 12.6 mg/dL (7-18)
[2022-07-07 21:47] LABS: MAGNESIUM 2.5 mg/dL (1.8-2.4)
[2022-07-07 21:48] LABS: CREATININE 0.7 mg/dL (0.55-1.3)
[2022-07-07 21:50] LABS: TOT PROT 7.6 g/dl (6.4-8.2)
[2022-07-07 22:01] LABS: BILIRUBIN,TOTAL 0.6 mg/dL (0.2-1)
[2022-07-07] MEDS ORDERED: MECLIZINE HCL 25 MG TABLET (FP) PO ONE (22:44)
[2022-07-07] MEDS ORDERED: MECLIZINE HCL 25 MG TABLET (FP) ONE (23:23)
[2022-07-08 06:40] LABS: BASO % 0.5 % (0-2.0); EOS % 0.5 % (0-4.5); HEMATOCRIT 36.5 % (32.4-45.2); HEMOGLOBIN 12.6 GM/dL (10.7-15.3); LYMPH % 28.4 % (8-40); MCH 29.4 pg (25.7-33.7); MCHC 34.5 g/dl (32.0-36.0); MEAN CELL VOLUME 85.1 fl (80-96); MEAN PLT VOLUME 8.2 fl (7.5-11.1); MONO % 7.7 % (3.8-10.2); NEUT % 62.9 % (42.8-82.8); PLATELET COUNT 226 10^3/uL (134-434); RBC 4.29 M/mm3 (3.60-5.2); RDW 13.4 % (11.6-15.6); WHITE BLOOD COUNT 5.2 K/mm3 (4.0-10.0)
[2022-07-08 07:07] LABS: CALCIUM 8.9 mg/dL (8.5-10.1)
[2022-07-08 07:08] LABS: ALBUMIN 3.7 g/dl (3.4-5.0); BLOOD UREA NITROGEN 9.9 mg/dL (7-18); MAGNESIUM 2.4 mg/dL (1.8-2.4)
[2022-07-08 07:11] LABS: CREATININE 0.6 mg/dL (0.55-1.3); PHOSPHOROUS 3.4 mg/dL (2.5-4.9)
[2022-07-08 07:12] LABS: CHOLESTEROL 195 mg/dL (50-200); LDL CHOLESTEROL (ONLY SJRH) 113 mg/dL (5-100); TOT PROT 7.1 g/dl (6.4-8.2)
[2022-07-08 07:13] LABS: BILIRUBIN,TOTAL 0.6 mg/dL (0.2-1); HDL CHOLESTEROL 59 mg/dL (40-60)
[2022-07-08] MEDS: HEPARIN NA (PORCINE) 5,000 UNITS/ML 1ML VIAL SQ SCH ×2 (09:32→21:21)
[2022-07-08] MEDS: ASPIRIN COATED 81 MG TABLET.EC PO SCH (09:32)
[2022-07-08] MEDS ORDERED: ENOXAPARIN NA (PORCINE) 40 MG/0.4 ML DISP.SYRIN SQ SCH (10:00)
[2022-07-08] MEDS ORDERED: ATORVASTATIN CA 40 MG TABLET (FP) PO SCH (22:00)
[2022-07-09] MEDS: HEPARIN NA (PORCINE) 5,000 UNITS/ML 1ML VIAL SQ SCH (09:07)
[2022-07-09] MEDS: ASPIRIN COATED 81 MG TABLET.EC PO SCH (09:08)
[2022-07-09 11:03] VITALS: BP 114/74; PULSE 73; RESP 20; TEMP 97.8
[2022-07-11 19:07] LABS: ANTIGLOMERULAR BASEMENT MEN.AB <0.2 units (0.0-0.9)
[2022-07-11 21:06] LABS: ATYPICAL pANCA <1:20 titer (Neg:<1:20); C-ANCA <1:20 titer (Neg:<1:20)
== END 2022-07-09 13:32 | disposition home or self-care (01) ==
LOC: JER 20:04 → JERBED 22:56 → J5S 07-08 02:50 → J4S 07-08 04:50
PROVIDERS: ADMIT Internal Medicine; ATTEND Internal Medicine
PROC: 3E033NZ Introduction of Analgesics, Hypnotics, Sedatives into Peripheral Vein, Percutaneous Approach (ICD-10-PCS; principal; 2022-07-07)
PROC: 3E023GC Introduction of Other Therapeutic Substance into Muscle, Percutaneous Approach (ICD-10-PCS; 2022-07-07)
PROC: 3E033GC Introduction of Other Therapeutic Substance into Peripheral Vein, Percutaneous Approach (ICD-10-PCS; 2022-07-07)
PROC: 3E0337Z Introduction of Electrolytic and Water Balance Substance into Peripheral Vein, Percutaneous Approach (ICD-10-PCS; 2022-07-07)
DX: G43.909 Migraine, unspecified, not intractable, without status migrainosus (principal); R11.0 Nausea; R42 Dizziness and giddiness; R31.9 Hematuria, unspecified; L02.416 Cutaneous abscess of left lower limb
CPT/HCPCS: 0241U-QW; 36415; 70450-TC; 70551-TC; 76775-TC; 80053; 80061; 81003; 82550; 83036; 83516; 83520; 83735; 84100; 84484; 84703; 85025; 86038; 86256; 87086; 93005; 93010; 96372; 96374; 96375; 99285-25; G0378; J1644